=== PATIENT | male | born 1965 | race African-American/Black ===

== ENCOUNTER 2016-09-28 13:59 | Emergency (ER) | payer OTHER ==
[~2016-09-28] VITALS: Ht 198.1 cm; Wt 105.7 kg
[~2016-09-28 13:59] MED LIST: ATORVASTATIN CA40 MG PO; BACTRIM,SEPT1 TABLET PO; CIPRO500 MG PO; LANTUS 3 M100 UNITS1 SC; LEVOTHYROXINE150 MCG PO; NOVOLOG PE100 UNITS/ SC; RAMIPRIL10 MG PO
[2016-09-28] MEDS ORDERED: KEFLEX500 MG PO (14:36)
[2016-09-28 14:44] VITALS: BP 131/78
== END 2016-09-28 14:56 | disposition home or self-care (01) ==
LOC: EME 13:59
DX: L60.0 Ingrowing nail (principal)
CPT/HCPCS: 99281; 99283